=== PATIENT | male | born 1965 | race Caucasian/White ===

== ENCOUNTER 2016-10-04 19:27 | Emergency (ER) | payer MEDICAID, OTHER ==
[~2016-10-04] VITALS: Ht 182.9 cm; Wt 200.0 kg
[~2016-10-04 19:27] MED LIST: ATRITAB PO; CITA-48 PO; DARU800T PO; DOXY100T PO; DULO1CAP2 PO; EMTR1TAB5; HYDR-3583 PO; HYDR4TAB PO; HYDR50TA15 PO; LYRI150C PO; METO50TA PO; PANT40TA3 PO; RITO100 PO; SULF1TAB47 PO; TRAZ50TA12 PO
[2016-10-04 19:46] VITALS: BP 109/60; PULSE 102; RESP 17; TEMP 98.1; O2SAT 96
[2016-10-04 20:35] LABS: AMPHETAMINE, URINE NEG (NEG); BARBITURATES, URINE NEG (NEG); COCAINE, URINE NEG (NEG)
[2016-10-04 20:40] LABS: ANION GAP 11 MEQ/L (5-15); AST (GOT) 36 U/L (15-37); BICARBONATE 22.1 MEQ/L (21.0-32.0); BLOOD UREA NITROGEN 4 MG/DL (7-18); CHLORIDE 100 MEQ/L (98-107); GLOMERULAR FILTRATION RATE 87 ML/MIN (>89); SODIUM (NA) 133 MEQ/L (136-145)
[2016-10-04 20:43] LABS: ALKALINE PHOSPHATASE 80 U/L (45-117); ALT (GPT) 38 U/L (12-78); TOTAL BILIRUBIN ADULT 0.1 MG/DL (0.2-1.0)
[2016-10-05] MEDS ORDERED: SODIUM CHLORIDE 0.9% FLUSH 5 ML FLUSH IVF PRN (00:30)
[2016-10-05] MEDS ORDERED: VANCOMYCIN INJ 2,250 MG in SODIUM CHLORID 0.9% 500 ML INJ 500 ML IV ONE (00:30)
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
[2016-10-05] MEDS ORDERED: HYDROmorphone HCL PF 1 MG/ML VIAL IV PUSH ONE (00:45)
[2016-10-05 01:06] LABS: AUTOMATED NEUTROPHIL # 3.4 TH/MM3 (1.8-7.7); BASOPHIL % 0.4 % (0.0-2.0); EOSINOPHIL # 0.1 TH/MM3 (0-0.4); EOSINOPHIL % 2.3 % (0.0-4.0); HEMATOCRIT 27.4 % (39.0-51.0); HEMO FLAGS DIFF FINAL; LYMPH % 18.2 % (9.0-44.0); MEAN CELL VOLUME 102.7 FL (80.0-100.0); MEAN CORPUSCULAR HGB CONC 34.1 % (32.0-36.0); MONO % 19.8 % (0.0-8.0); NEUT % 59.3 % (16.0-70.0); PLATELET COUNT 211 TH/MM3 (150-450); RED BLOOD COUNT 2.67 MIL/MM3 (4.50-5.90); RED CELL DISTRIBUTION WIDTH 16.6 % (11.6-17.2); WHITE BLOOD COUNT 5.7 TH/MM3 (4.0-11.0)
[2016-10-05 01:08] LABS: BLOOD, URINE NEG (NEG); COMMENT (UR) CULT NOT INDICATED; CULTURE IF INDICATED CULT NOT INDICATED; GLUCOSE,URINE NEG (NEG); KETONE, URINE NEG (NEG); NITRITE,URINE NEG (NEG); PH, URINE 6.5 (5.0-8.5); URINE COLOR LIGHT-YELLOW (YELLW/STRAW)
[2016-10-05 01:16] LABS: AMPHETAMINE, URINE NEG (NEG); BARBITURATES, URINE NEG (NEG); COCAINE, URINE NEG (NEG)
[2016-10-05 01:29] LABS: ALT (GPT) 36 U/L (12-78); ANION GAP 9 MEQ/L (5-15); AST (GOT) 32 U/L (15-37); BLOOD UREA NITROGEN 4 MG/DL (7-18); CHLORIDE 101 MEQ/L (98-107); GLOMERULAR FILTRATION RATE 97 ML/MIN (>89); POTASSIUM 3.5 MEQ/L (3.5-5.1); SODIUM (NA) 136 MEQ/L (136-145)
[2016-10-05 01:30] LABS: ALKALINE PHOSPHATASE 73 U/L (45-117); TOTAL BILIRUBIN ADULT 0.2 MG/DL (0.2-1.0)
--- NOTE | 2016-10-05 01:36 | RADRPT ---
EXAM DATE/TIME: 10/05/2016 00:50 [place] COMPARISON: No previous studies available for comparison. INDICATIONS : Swelling. MEDICAL HISTORY : Hep C. HIV. Depression. Alcohol use. SURGICAL HISTORY : Tonsillectomy.Appendectomy. Three back surgeries. Six knee surgeries. ENCOUNTER: Initial ACUITY: 2 weeks PAIN SCORE: 7/10 LOCATION: Bilateral legs. TECHNIQUE: Venous ultrasound of the left and right leg was performed from the inguinal ligament to the proximal calf. Real-time, color Doppler and spectral tracing, compression and augmentation techniques were us ed. FINDINGS: RIGHT LEG: There is normal compressibility of the deep venous system from the inguinal region to the proximal ca lf. No echogenic clot is seen in the lumen of the common femoral, femoral, popliteal, and posterior tibial veins. There is a normal response of the venous system to proximal and distal augmentation an d respiration. LEFT LEG: There is normal compressibility of the deep venous system from the inguinal region to the proximal ca lf. No echogenic clot is seen in the lumen of the common femoral, femoral, popliteal, and posterior tibial veins. There is a normal response of the venous system to proximal and distal augmentation an d respiration. CONCLUSION: The study is negative for deep venous thrombosis bilateral lower extremity. Helio Winchester MD on October 05, 2016 at 1:34 Board Certified Radiologist. This report was verified electronically.
[2016-10-05] MEDS ORDERED: ACETAMINOPHEN 325 MG TAB PO PRN (02:15)
[2016-10-05] MEDS ORDERED: MORPHINE SULFATE 4 MG/ML INJ IV PUSH ONE (06:45)
[2016-10-05 09:14] VITALS: BP 121/76; PULSE 99; RESP 18; O2SAT 97; O2SAT 99
[2016-10-05] MEDS ORDERED: HYDROmorphone HCL 4 MG TAB PO ONE (11:15)
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
== END 2016-10-05 14:01 | disposition home or self-care (01) ==
LOC: NEPE 19:27 → NEPA 10-05 14:01
DX: M79.89 Other specified soft tissue disorders (principal); L03.119 Cellulitis of unspecified part of limb; F32.9 Major depressive disorder, single episode, unspecified; B19.20 Unspecified viral hepatitis C without hepatic coma; D64.9 Anemia, unspecified; F17.210 Nicotine dependence, cigarettes, uncomplicated; F10.10 Alcohol abuse, uncomplicated; B20 Human immunodeficiency virus [HIV] disease
CPT/HCPCS: 80053; 80307; 80320; 81001; 85025; 93970; 96365; 96366; 96375; 99284; J1170; J2270; J3370; J7040